=== PATIENT | female | born 1985 | race Caucasian/White ===

== ENCOUNTER 2017-10-14 17:44 | Emergency (ER) | payer OTHER ==
[2017-10-14 17:58] VITALS: BP 110/61; PULSE 91; TEMP 98; BMI 24.4
--- NOTE | 2017-10-14 17:58 | PDOC ---
Rapid Medical Evaluation Chief Complaint: Rash Time Seen by Provider: 10/14/17 17:54 Medical Evaluation: Allergies Allergy/AdvReac Type Severity Reaction Status Date / Time No Known Allergies Allergy Verified 10/22/15 15:53 10/14/17 17:55 I have performed a brief in-person evaluation of this patient. The patient presents with a chief complaint of: itchy rash Pertinent physical exam findings: scattered areas of itchy rash, on prednisone for 5 day already, getting worse I have ordered the following:urine The patient will proceed to the ED for further evaluation. Discharge Disposition - Diagnosis Rash - Referrals Referrals: STAFF,NOT ON [Primary Care Provider] - - Patient Instructions - Post Discharge Activity
--- NOTE | 2017-10-14 18:38 | PDOC ---
History of Present Illness - General Chief Complaint: Rash Stated Complaint: RASH Time Seen by Provider: 10/14/17 17:54 History Source: Patient Exam Limitations: No Limitations - History of Present Illness Initial Comments: 10/14/17 18:35 My chief complaint: Itchy rash 1 week History of present illness: She is a 32-year-old female with no significant medical problems except for eczema here today complaining of worsening rash to scalp bilateral, left lateral neck, medial elbow area, buttocks, hands, feet dorsal aspect and pubic area for one week. She denies any fever, cough, any difficulty breathing or swallowing. Patient reports that rash began on her hands , elbow area and has spread to buttocks pubic area and on top of her toes, left neck area and scalp. Patient was seen by a psychologist engineering on 10/09/2017 and was told that rash on her hands was hives and on her medial elbow area and buttocks was eczema. Patient was started on prednisone tapering dose 14 days. Patient was given a few different types of creams with steroids and them and Rx for hydroxyzine 10 mg for itchiness. Patient reports that rash is extremely itchy with a burning sensation. Patient denies any new medications or cleaning items. Patient had been on oral contraceptives stopped them 1 month ago and Z-Bhanu 2 weeks ago. Patient denies any new foods, soaps, or creams or clothing. Reports that she started to have her close washed at a laundry mat approximately one month ago. Patient currently is usingTacionex calciprotriene betamethasone cream to rash. Patient denies any difficulty swallowing or breathing presently. Patient went back to the psychologist engineering on 10/10/2017 and psychologist engineering did a biopsy of her skin on her hand. Patient does not think the rash has been resolving actually has been worse on her buttocks and pubic area, rash persists left neck, hands, scalp, buttock,elbows. Patient reports taking Benadryl without relief of itchiness. 10/14/17 19:02 10/14/17 19:08 10/14/17 19:09 Timing/Duration: getting worse Severity: moderate Associated Symptoms: reports: rash (pruritic ) Past History - Past Medical History Allergies/Adverse Reactions: Allergies Allergy/AdvReac Type Severity Reaction Status Date / Time No Known Allergies Allergy Verified 10/14/17 17:58 Home Medications: Ambulatory Orders Levothyroxine [Synthroid -] 75 mcg PO DAILY 10/20/15 Hydroxyzine HCl [Atarax -] 25 mg PO Q4H PRN #30 tablet 10/14/17 Loratadine [Claritin] 10 mg PO DAILY #5 tablet 10/14/17 Ranitidine [Zantac -] 150 mg PO BID #10 tablet 10/14/17 Asthma: No Cancer: No Cardiac Disorders: No COPD: No Diabetes: No HTN: No Seizures: No Thyroid Disease: Yes (HYPOTHYROIDISM- ON SYNTHROID) - Suicide/Smoking/Psychosocial Hx Smoking History: Never smoked Have you smoked in the past 12 months: No Hx Alcohol Use: No Drug/Substance Use Hx: No Hx Substance Use Treatment: No Review of Systems - Review of Systems Able to Perform ROS?: Yes Constitutional: No: Symptoms Reported HEENTM: No: Symptoms Reported Respiratory: No: Symptoms reported Cardiac (ROS): No: Symptoms Reported ABD/GI: No: Symptoms Reported : No: Symptoms Reported Musculoskeletal: No: Symptoms Reported Integumentary: Yes: Pruritus, Rash (left lateral neck, scalp, dorsal hands. fingers b/l, dorsal toes b/l, buttock medially b/l, pubic area, medial elbows b/ l ) *Physical Exam - Vital Signs Last Vital Signs Temp Pulse Resp BP Pulse Ox 98 F 91 H 18 110/61 99 10/14/17 17:53 10/14/17 17:53 10/14/17 17:53 10/14/17 17:53 10/14/17 17:53 - Physical Exam General Appearance: Yes: Appropriately Dressed HEENT: positive: TMs Normal. negative: Pharyngeal Erythema, Tonsillar Exudate, Tonsillar Erythema, Nasal Congestion, Rhinorrhea Neck: negative: Lymphadenopathy (R), Lymphadenopathy (L) Respiratory/Chest: positive: Lungs Clear, Normal Breath Sounds. negative: Chest Tender, Respiratory Distress Cardiovascular: positive: Regular Rhythm, Regular Rate, S1, S2 Integumentary: positive: Rash (left lateral neck non raised rash erythematous with slight scaliness, b/l medial elbow erythematous with slight scaliness, dorsal hands/ fingers minimally raised, dorsal toes b/l minimally raised, medial buttock & medial elbows area erythematous b/l with slight scaliness non raised, ) ED Treatment Course - ADDITIONAL ORDERS Additional order review: Laboratory Results 10/14/17 18:00 Urine HCG, Qual Negative Medical Decision Making - Medical Decision Making 10/14/17 19:07 She is a 32-year-old female with no significant medical problems except for eczema here today complaining of worsening rash to scalp bilateral medial elbow area, buttocks, hands, feet dorsal aspect and pubic area for one week. She denies any fever, cough, any difficulty breathing or swallowing. Patient reports that rash began on her hands, elbow area and has spread to buttocks pubic area and on top of her toes, left neck area and scalp. Patient was seen by a psychologist engineering on 10/09/2017 and was told that rash on her hands was hives and on her medial elbow area and buttocks was eczema. Patient was started on prednisone tapering dose 14 days. Patient was given a few different types of creams with steroids and them and Rx for hydroxyzine 10 mg for itchiness. Patient reports that rash is extremely itchy with a burning sensation. Patient denies any new medications. Patient had been on oral contraceptives stopped them 1 month ago and Z-Bhanu 2 weeks ago. Patient denies any new foods, soaps, or creams or clothing. Reports that she started to have her close washed at a laundry mat approximately one month ago. Patient currently is usingTacionex calciprotriene betamethasone cream to rash. Patient denies any difficulty swallowing or breathing presently. Patient went back to the psychologist engineering on and psychologist engineering did a biopsy of her skin on her hand. Patient does not think the rash has been resolving actually has been worse on her buttocks and pubic area., 10/14/17 19:14 pruritic rash PLAN: hydroxyzine 25 mg po now follow up with psychologist engineering continue with prednisone claritin 10 mg daily x 5 days zantac 150 mg bid for 5 days 10/14/17 19:15 10/14/17 19:52 *DC/Admit/Observation/Transfer Diagnosis at time of Disposition: Rash - Discharge Dispostion Disposition: HOME Condition at time of disposition: Stable - Prescriptions Prescriptions: Hydroxyzine HCl [Atarax -] 25 mg PO Q4H PRN #30 tablet PRN Reason: For Itching - Referrals Referrals: STAFF,NOT ON [Primary Care Provider] - Janessa Johnson MD [Staff Physician] - - Patient Instructions Additional Instructions: Continue to take prednisone as previously ordered until completion Return to emergency room if symptoms worsen any difficulty swallowing or breathing Follow-up with psychologist engineering as soon as possible Stop taking Benadryl and use Atarax as ordered today. Patient voiced understanding of discharge instructions and all questions were answered - Post Discharge Activity
[2017-10-14] MEDS ORDERED: hydrOXYzine HCL 25 MG TABLET (FP) PO ONE (18:58)
== END 2017-10-14 19:47 | disposition home or self-care (01) ==
LOC: JERFT 17:44
DX: R21 Rash and other nonspecific skin eruption (principal); E03.9 Hypothyroidism, unspecified; L30.9 Dermatitis, unspecified
CPT/HCPCS: 84703; 99281-25

== ENCOUNTER 2017-11-04 21:14 | Emergency (ER) | payer OTHER ==
[2017-11-04 21:26] VITALS: BP 126/57; PULSE 107; TEMP 97.9; BMI 24.4
--- NOTE | 2017-11-04 21:36 | PDOC ---
Rapid Medical Evaluation Chief Complaint: Abscess Boil Time Seen by Provider: 11/04/17 21:24 Medical Evaluation: Allergies Allergy/AdvReac Type Severity Reaction Status Date / Time No Known Allergies Allergy Verified 11/04/17 21:25 Vital Signs Temp Pulse Resp BP Pulse Ox 97.9 F 107 H 20 126/57 99 11/04/17 21:22 11/04/17 21:22 11/04/17 21:22 11/04/17 21:22 11/04/17 21:22 The patient presents with a chief complaint of: redness and pain to left buttocks I have performed a brief in-person evaluation of this patient; Pertinent physical exam findings redness to b/l buttocks. warm to touch I have ordered the following: none The patient will proceed to the ED for further evaluation. 11/04/17 21:28
[2017-11-04] MEDS ORDERED: CEPHALEXIN MONOHYDRATE 500 MG CAPSULE (UD) PO ONE (21:55)
[2017-11-04] MEDS ORDERED: SULFAMETHOXAZOLE/TRIMETHOPRIM 800MG/160MG D.S. TABLET PO ONE (21:55)
--- NOTE | 2017-11-04 21:55 | PDOC ---
History of Present Illness - General Chief Complaint: Abscess Boil Stated Complaint: RASH Time Seen by Provider: 11/04/17 21:24 History Source: Patient Exam Limitations: No Limitations - History of Present Illness Initial Comments: 11/04/17 21:57 32-year-old female with medical history of eczema presents to the emergency department complaining of redness/pain/warm and hardness to the center of her buttocks after vigorous scratching from itch 3 days ago. Patient denies fever, chills, nausea/vomiting, abdominal pains, difficulty voiding or bowel movements. Patient states she's been applying cold packs to her buttocks. Timing/Duration: other (2d) Associated Symptoms: denies: fever/chills Past History - Past Medical History Allergies/Adverse Reactions: Allergies Allergy/AdvReac Type Severity Reaction Status Date / Time No Known Allergies Allergy Verified 11/04/17 21:25 Home Medications: Ambulatory Orders Levothyroxine [Synthroid -] 75 mcg PO DAILY 10/20/15 Hydroxyzine HCl [Atarax -] 25 mg PO Q4H PRN #30 tablet 10/14/17 Asthma: No Cancer: No Cardiac Disorders: No COPD: No Diabetes: No HTN: No Seizures: No Thyroid Disease: Yes (HYPOTHYROIDISM- ON SYNTHROID) - Suicide/Smoking/Psychosocial Hx Smoking History: Never smoked Have you smoked in the past 12 months: No Hx Alcohol Use: No Drug/Substance Use Hx: No Hx Substance Use Treatment: No Review of Systems - Review of Systems Able to Perform ROS?: Yes Comments:: 11/04/17 21:56 CONSTITUTIONAL: Absent: fever, chills, diaphoresis, generalized weakness, malaise, loss of appetite HEENT: Absent: rhinorrhea, nasal congestion, throat pain, throat swelling, difficulty swallowing, mouth swelling, ear pain, eye pain, visual Changes CARDIOVASCULAR: Absent: chest pain, loss of consciousness, palpitations, irregular heart rate, peripheral edema RESPIRATORY: Absent: cough, shortness of breath, dyspnea with exertion, orthopnea, wheezing, stridor, hemoptysis SKIN: +erythema/pain to center b/l buttocks denies drainage Absent: rash, itching, pallor HEMATOLOGIC/IMMUNOLOGIC: Absent: easy bleeding, easy bruising, lymphadenopathy, frequent infections Is the patient limited Cypriot proficient: No *Physical Exam - Vital Signs Last Vital Signs Temp Pulse Resp BP Pulse Ox 97.9 F 107 H 20 126/57 99 11/04/17 21:22 11/04/17 21:22 11/04/17 21:22 11/04/17 21:22 11/04/17 21:22 - Physical Exam Comments: 11/04/17 21:56 GENERAL: Well developed, well nourished. Awake and alert. No acute distress. HEENT: Normocephalic, atraumatic. PERRLA, EOMI. No conjunctival pallor. Sclera are non- icteric. Moist mucous membranes. Oropharynx is clear. NECK: Supple. Full ROM. No JVD. Carotid pulses 2+ and symmetric, without bruits. No thyromegaly. No lymphadenopathy. CARDIOVASCULAR: Regular rate and rhythm. No murmurs, rubs, or gallops. Distal pulses are 2+ and symmetric. PULMONARY: No evidence of respiratory distress. Lungs clear to auscultation bilaterally. No wheezing, rales or rhonchi. ABDOMINAL: Soft. Non-tender. Non-distended. No rebound or guarding. No organomegaly. Normoactive bowel sounds. MUSCULOSKELETAL Normal range of motion at all joints. No bony deformities or tenderness. No CVA tenderness. EXTREMITIES: No cyanosis. No clubbing. No edema. No calf tenderness. SKIN: Warm and dry. Normal capillary refill. No rashes. No jaundice. B/L central buttocks, neg lymphangitis, +warm to touch erythema ~2cm circular erythema, +indurated *DC/Admit/Observation/Transfer Diagnosis at time of Disposition: Cellulitis and abscess of buttock - Discharge Dispostion Disposition: HOME Condition at time of disposition: Stable Admit: No - Referrals Referrals: STAFF,NOT ON [Primary Care Provider] - - Patient Instructions Printed Discharge Instructions: DI for Cellulitis -- Adult Additional Instructions: Warm compresses Tylenol or motrin as needed for pain every 6 hours Take your antibiotics as directed/Keflex and bactrim ds Follow up with your physician in 2 days for a wound check Warm compress to affected area Return to the ER for severe/persistent/worsening symptoms - Post Discharge Activity
[2017-11-04] MEDS ORDERED: SULFAMETHOXAZOLE/TRIMETHOPRIM 800MG/160MG D.S. TABLET ONE (21:57)
[2017-11-04] MEDS ORDERED: CEPHALEXIN MONOHYDRATE 500 MG CAPSULE (UD) ONE (21:58)
== END 2017-11-04 21:56 | disposition home or self-care (01) ==
LOC: JERFT 21:14
DX: L03.317 Cellulitis of buttock (principal); L02.31 Cutaneous abscess of buttock
CPT/HCPCS: 99281-25

== ENCOUNTER 2021-02-03 01:22 | Emergency (ER) | payer OTHER ==
[2021-02-03 01:55] VITALS: BP 104/70; PULSE 83; TEMP 98.3; BMI 29.2
== END 2021-02-03 03:41 | disposition left against medical advice (07) ==
LOC: JER 01:22
DX: R07.9 Chest pain, unspecified (principal)
CPT/HCPCS: 93005; 93010; 99284-25

== ENCOUNTER 2021-03-09 20:42 | Emergency (ER) | payer OTHER ==
[2021-03-09 20:53] VITALS: BMI 30.1
[2021-03-09] MEDS ORDERED: LACTATED RINGERS SOLUTION 1000 ML INFUS.BAG IV ONE (22:01)
[2021-03-09] MEDS ORDERED: METOCLOPRAMIDE HCL INJECTION 10 MG/2 ML VIAL IVPUSH ONE (22:03)
[2021-03-09] MEDS ORDERED: METOCLOPRAMIDE HCL INJECTION 10 MG/2 ML VIAL ONE (22:10)
[2021-03-09 22:20] LABS: BASO % 0.5 % (0-2.0); EOS % 0.4 % (0-4.5); HEMATOCRIT 41.9 % (32.4-45.2); HEMOGLOBIN 14.4 GM/dL (10.7-15.3); LYMPH % 23.5 % (8-40); MCH 29.2 pg (25.7-33.7); MCHC 34.4 g/dl (32.0-36.0); MEAN PLT VOLUME 8.6 fl (7.5-11.1); MONO % 5.8 % (3.8-10.2); NEUT % 69.8 % (42.8-82.8); PLATELET COUNT 284 K/MM3 (134-434); RBC 4.94 M/mm3 (3.60-5.2); RDW 13.9 % (11.6-15.6)
[2021-03-09 22:30] LABS: EPI CELLS >36 /uL (0-25.1); HYALINE CASTS 1 /uL (0-3.1); PH,URINE 7.5 (5.0-8.0); URINE APPEARANCE TURBID; URINE BACTERIA 1626 /uL (0-1359); URINE BILIRUBIN NEGATIVE (NEGATIVE); URINE COLOR YELLOW; URINE GLUCOSE (UA) NEGATIVE (NEGATIVE); URINE KETONE 1+ (NEGATIVE); URINE LEUK ESTERASE 3+ (NEGATIVE); URINE NITRITE NEGATIVE (NEGATIVE); URINE PROTEIN NEGATIVE (NEGATIVE); URINE RBC 9 /uL (0-23.9); URINE UROBILINOGEN 0.2 mg/dL (0.2-1.0); URINE WBC 76 /uL (0-25.8)
[2021-03-09 22:54] LABS: ALBUMIN 3.9 g/dl (3.4-5.0); BLOOD UREA NITROGEN 8.8 mg/dL (7-18); CALCIUM 9.7 mg/dL (8.5-10.1)
[2021-03-09 22:55] LABS: MAGNESIUM 2.5 mg/dL (1.8-2.4)
[2021-03-09 22:58] LABS: CREATININE 0.7 mg/dL (0.55-1.3); PHOSPHOROUS 4.1 mg/dL (2.5-4.9)
[2021-03-09 22:59] LABS: BILIRUBIN,TOTAL 0.4 mg/dL (0.2-1); TOT PROT 7.6 g/dl (6.4-8.2)
[2021-03-10 00:04] VITALS: BP 114/61; PULSE 78; TEMP 97.6
[2021-03-10] MEDS ORDERED: PROMETHAZINE HCL 50 MG/1 ML AMP IM ONE (01:10)
[2021-03-10] MEDS ORDERED: LACTATED RINGERS SOLUTION 1000 ML INFUS.BAG IV ONE (01:14)
[2021-03-10] MEDS ORDERED: PROMETHAZINE HCL 25 MG/1 ML VIAL IM ONE (01:30)
[2021-03-10 01:48] LABS: EPI CELLS 19 /uL (0-25.1); HYALINE CASTS 1 /uL (0-3.1); PH,URINE 7.5 (5.0-8.0); URINE APPEARANCE CLEAR; URINE BACTERIA 459 /uL (0-1359); URINE BILIRUBIN NEGATIVE (NEGATIVE); URINE COLOR YELLOW; URINE GLUCOSE (UA) NEGATIVE (NEGATIVE); URINE KETONE 1+ (NEGATIVE); URINE LEUK ESTERASE 2+ (NEGATIVE); URINE NITRITE NEGATIVE (NEGATIVE); URINE PROTEIN NEGATIVE (NEGATIVE); URINE RBC 6 /uL (0-23.9); URINE UROBILINOGEN 0.2 mg/dL (0.2-1.0); URINE WBC 22 /uL (0-25.8)
[2021-03-10] MEDS ORDERED: PYRIDOXINE HCL (B-6) 50 MG TABLET (FP) PO ONE (01:51)
[2021-03-10] MEDS ORDERED: PROMETHAZINE HCL 25 MG TABLET PO ONE (01:52)
== END 2021-03-10 05:00 | disposition home or self-care (01) ==
LOC: JER 20:42
PROC: 3E033NZ Introduction of Analgesics, Hypnotics, Sedatives into Peripheral Vein, Percutaneous Approach (ICD-10-PCS; principal; 2021-03-09)
DX: O21.1 Hyperemesis gravidarum with metabolic disturbance (principal)
CPT/HCPCS: 36415; 80053; 81003; 83735; 84100; 84702; 84703; 85025; 87086; 99284-25

== ENCOUNTER 2021-03-28 20:42 | Emergency (ER) | payer OTHER ==
[2021-03-28] MEDS ORDERED: LACTATED RINGERS SOLUTION 1000 ML INFUS.BAG IV STA (20:50)
[2021-03-28 20:56] VITALS: BP 122/61; PULSE 98; TEMP 98.4; BMI 30.1
[2021-03-28 21:35] LABS: BASO % 0.6 % (0-2.0); HEMATOCRIT 41.9 % (32.4-45.2); HEMOGLOBIN 14.1 GM/dL (10.7-15.3); LYMPH % 21.5 % (8-40); MCH 28.7 pg (25.7-33.7); MCHC 33.6 g/dl (32.0-36.0); MEAN CELL VOLUME 85.4 fl (80-96); MEAN PLT VOLUME 9.3 fl (7.5-11.1); MONO % 7.4 % (3.8-10.2); NEUT % 69.5 % (42.8-82.8); PLATELET COUNT 272 K/MM3 (134-434); RDW 13.8 % (11.6-15.6); WHITE BLOOD COUNT 9.4 K/mm3 (4.0-10.0)
[2021-03-28] MEDS ORDERED: ONDANSETRON 4 MG/2 ML VIAL IVPUSH ONE (21:42)
[2021-03-28] MEDS ORDERED: ONDANSETRON 4 MG/2 ML VIAL ONE (21:48)
[2021-03-28 21:49] LABS: ALBUMIN 3.6 g/dl (3.4-5.0); BLOOD UREA NITROGEN 8.1 mg/dL (7-18); CALCIUM 8.9 mg/dL (8.5-10.1)
[2021-03-28 21:53] LABS: CREATININE 0.6 mg/dL (0.55-1.3)
[2021-03-28 21:54] LABS: BILIRUBIN,TOTAL 0.3 mg/dL (0.2-1); TOT PROT 7.1 g/dl (6.4-8.2)
[2021-03-28 21:55] LABS: EPI CELLS >36 /uL (0-25.1); HYALINE CASTS 5 /uL (0-3.1); URINE APPEARANCE CLOUDY; URINE BACTERIA 829 /uL (0-1359); URINE BILIRUBIN NEGATIVE (NEGATIVE); URINE COLOR YELLOW; URINE GLUCOSE (UA) NEGATIVE (NEGATIVE); URINE KETONE 2+ (NEGATIVE); URINE LEUK ESTERASE 1+ (NEGATIVE); URINE NITRITE NEGATIVE (NEGATIVE); URINE PROTEIN NEGATIVE (NEGATIVE); URINE RBC 4 /uL (0-23.9); URINE WBC 67 /uL (0-25.8)
[2021-03-28] MEDS ORDERED: CEPHALEXIN MONOHYDRATE 500 MG CAPSULE (UD) PO ONE (22:24)
[2021-03-28] MEDS ORDERED: CEPHALEXIN MONOHYDRATE 500 MG CAPSULE (UD) ONE (22:32)
== END 2021-03-29 00:11 | disposition home or self-care (01) ==
LOC: JER 20:42
PROC: 3E033GC Introduction of Other Therapeutic Substance into Peripheral Vein, Percutaneous Approach (ICD-10-PCS; principal; 2021-03-28)
DX: O21.1 Hyperemesis gravidarum with metabolic disturbance (principal); Z3A.10 10 weeks gestation of pregnancy
CPT/HCPCS: 36415; 80053; 81003; 85025; 87086; 99284-25

== ENCOUNTER 2021-07-25 19:19 | Emergency (ER) | payer OTHER ==
[2021-07-25 19:51] VITALS: BMI 30.1
[2021-07-25] MEDS ORDERED: LACTATED RINGERS SOLUTION 1000 ML INFUS.BAG IV ONE (20:05)
[2021-07-25 20:45] LABS: BASO % 0.7 % (0-2.0); EOS % 0.9 % (0-4.5); HEMATOCRIT 36.7 % (32.4-45.2); HEMOGLOBIN 12.5 GM/dL (10.7-15.3); LYMPH % 14.7 % (8-40); MCH 28.8 pg (25.7-33.7); MCHC 33.9 g/dl (32.0-36.0); MEAN PLT VOLUME 8.2 fl (7.5-11.1); MONO % 5.2 % (3.8-10.2); NEUT % 78.5 % (42.8-82.8); PLATELET COUNT 299 10^3/uL (134-434); RBC 4.32 M/mm3 (3.60-5.2); RDW 13.8 % (11.6-15.6); WHITE BLOOD COUNT 12.2 K/mm3 (4.0-10.0)
[2021-07-25 20:48] LABS: EPI CELLS 17 /uL (0-25.1); HYALINE CASTS 0 /uL (0-3.1); PH,URINE 7.5 (5.0-8.0); URINE APPEARANCE CLOUDY; URINE BACTERIA 170 /uL (0-1359); URINE BILIRUBIN NEGATIVE (NEGATIVE); URINE COLOR YELLOW; URINE GLUCOSE (UA) NEGATIVE (NEGATIVE); URINE KETONE NEGATIVE (NEGATIVE); URINE LEUK ESTERASE 1+ (NEGATIVE); URINE NITRITE NEGATIVE (NEGATIVE); URINE PROTEIN NEGATIVE (NEGATIVE); URINE RBC 0 /uL (0-23.9); URINE UROBILINOGEN 0.2 mg/dL (0.2-1.0); URINE WBC 10 /uL (0-25.8)
[2021-07-25] MEDS ORDERED: CEPHALEXIN MONOHYDRATE 500 MG CAPSULE (UD) PO ONE (20:51)
[2021-07-25 20:59] LABS: CHLORIDE 106 mmol/L (98-107); SODIUM 138 mmol/L (136-145)
[2021-07-25 21:01] LABS: BLOOD UREA NITROGEN 7.3 mg/dL (7-18); CALCIUM 8.8 mg/dL (8.5-10.1)
[2021-07-25 21:02] LABS: ANION GAP 8 MMOL/L (8-16); CO2 24 mmol/L (21-32); GLUCOSE,RANDOM 84 mg/dL (74-106); MAGNESIUM 2.2 mg/dL (1.8-2.4)
[2021-07-25 21:05] LABS: CREATININE 0.5 mg/dL (0.55-1.3); SGOT/AST 17 U/L (15-37); SGPT/ALT 11 U/L (13-61)
[2021-07-25 21:06] LABS: BILIRUBIN,TOTAL 0.2 mg/dL (0.2-1); TOT PROT 7.1 g/dl (6.4-8.2)
[2021-07-25] MEDS ORDERED: CEPHALEXIN MONOHYDRATE 500 MG CAPSULE (UD) ONE (21:06)
[2021-07-25 21:08] LABS: ALK PHOS 93 U/L (45-117)
[2021-07-25 21:54] LABS: HIV INTERPRETATION NEGATIVE (NEGATIVE)
[2021-07-25 22:21] VITALS: BP 108/66; PULSE 81; TEMP 98.2
== END 2021-07-25 22:41 | disposition home or self-care (01) ==
LOC: JER 19:19
DX: O26.892 Other specified pregnancy related conditions, second trimester (principal); O23.42 Unspecified infection of urinary tract in pregnancy, second trimester; R42 Dizziness and giddiness; Z3A.26 26 weeks gestation of pregnancy
CPT/HCPCS: 36415; 80053; 81003; 82550; 83735; 84439; 84443; 84481; 84484; 85025; 87086; 87389; 93005; 93010; 99284-25

== ENCOUNTER 2021-10-27 20:30 | Inpatient (IN) | payer OTHER ==
[2021-10-27] MEDS: ELECTROLYTE-148 SOLN 1,000 ML IV SCH (21:00)
[2021-10-27 21:52] LABS: INR 0.96 (0.83-1.09); PROTHROMBIN TIME (PATIENT) 10.8 SEC (9.7-13.0)
[2021-10-27 21:53] LABS: BASO % 0.3 % (0-2.0); HEMATOCRIT 38.8 % (32.4-45.2); LYMPH % 25.7 % (8-40); MCH 28.3 pg (25.7-33.7); MCHC 33.6 g/dl (32.0-36.0); MEAN CELL VOLUME 84.4 fl (80-96); MEAN PLT VOLUME 9.1 fl (7.5-11.1); MONO % 8.4 % (3.8-10.2); NEUT % 64.6 % (42.8-82.8); PLATELET COUNT 279 10^3/uL (134-434); RDW 15.8 % (11.6-15.6); WHITE BLOOD COUNT 10.6 K/mm3 (4.0-10.0)
[2021-10-27 21:54] LABS: ACTIVATED PTT 28.2 SECONDS (25.2-36.5)
[2021-10-27 22:08] LABS: BLOOD UREA NITROGEN 13.3 mg/dL (7-18); CALCIUM 9.5 mg/dL (8.5-10.1)
[2021-10-27 22:12] LABS: CREATININE 0.6 mg/dL (0.55-1.3)
[2021-10-27] MEDS ORDERED: OXYTOCIN 30 UNITS in 0.9% NS 30 UNIT/500 ML INFUS.BAG IVPB SCH (22:30)
[2021-10-27 23:05] VITALS: BMI 32.8
[2021-10-27] MEDS ORDERED: OXYTOCIN 30 UNITS in 0.9% NS 30 UNIT/500 ML INFUS.BAG IVPB ONE (23:20)
[2021-10-28] MEDS ORDERED: FENTANYL/BUPIVACAINE/NS/PF - PCEA - 50 ML DISP.SYRIN EP ONE ×2 (01:26→04:57)
[2021-10-28] MEDS ORDERED: PCA PUMP NR ONE ×2 (01:26→07:34)
[2021-10-28] MEDS ORDERED: BUPIVACAINE HCL/PF 0.25% (2.5MG/ML) 10 ML VIAL ONE (01:32)
[2021-10-28] MEDS ORDERED: NALOXONE HCL 0.4 MG/ML VIAL IVPUSH PRN (02:02)
[2021-10-28] MEDS ORDERED: FENTANYL/BUPIVACAINE/NS/PF - PCEA - 50 ML DISP.SYRIN EP SCH ×2 (02:15→08:40)
[2021-10-28] MEDS: ELECTROLYTE-148 SOLN 1,000 ML IV SCH (04:00)
[2021-10-28] MEDS ORDERED: OXYTOCIN 20 UNITS in 0.9% NS 20 UNIT/1,000 ML INFUS.BAG IV ONE (07:28)
[2021-10-28] MEDS ORDERED: METHYLERGONOVINE MALEATE 0.2 MG/1 ML AMP IM PRN (08:24)
[2021-10-28] MEDS ORDERED: BENZOCAINE 20% 57 GM BOTTLE TP PRN (08:24)
[2021-10-28] MEDS ORDERED: WITCH HAZEL 50% (TUCKS) 40 PAD/JAR PAD TP PRN (08:24)
[2021-10-28] MEDS ORDERED: BISACODYL 10 MG SUPP.RECT RC PRN (08:24)
[2021-10-28] MEDS ORDERED: BENZOCAINE 28 GM HEMORRHOIDAL OINTMENT TP PRN (08:24)
[2021-10-28] MEDS ORDERED: oxyCODONE HCL 5 MG TABLET PO PRN (08:24)
[2021-10-28] MEDS ORDERED: OXYTOCIN 20 UNITS in 0.9% NS 20 UNIT/1,000 ML INFUS.BAG IV SCH (08:30)
[2021-10-28] MEDS ORDERED: oxyCODONE HCL 5 MG TABLET ONE (11:37)
[2021-10-28] MEDS: ACETAMINOPHEN 325 MG TABLET (FP) PO PRN ×2 (11:40→14:58)
[2021-10-28] MEDS ORDERED: ACETAMINOPHEN 325 MG TABLET (FP) ONE ×2 (11:41→14:56)
[2021-10-28] MEDS: SENNOSIDES/DOCUSATE COMBO (SENNA PLUS) TABLET (UD) PO PRN (19:37)
[2021-10-28] MEDS: IBUPROFEN 600 MG TABLET (FP) PO PRN (19:37)
[2021-10-29 07:44] LABS: BASO % 0.5 % (0-2.0); EOS % 1.6 % (0-4.5); HEMATOCRIT 35.6 % (32.4-45.2); HEMOGLOBIN 11.9 GM/dL (10.7-15.3); LYMPH % 25.3 % (8-40); MCH 28.7 pg (25.7-33.7); MCHC 33.5 g/dl (32.0-36.0); MEAN CELL VOLUME 85.8 fl (80-96); MEAN PLT VOLUME 8.9 fl (7.5-11.1); MONO % 7.3 % (3.8-10.2); NEUT % 65.3 % (42.8-82.8); PLATELET COUNT 252 10^3/uL (134-434); RBC 4.16 M/mm3 (3.60-5.2); RDW 16.3 % (11.6-15.6); WHITE BLOOD COUNT 11.1 K/mm3 (4.0-10.0)
[2021-10-29] MEDS: IBUPROFEN 600 MG TABLET (FP) PO PRN ×3 (07:52→20:57)
[2021-10-29 20:40] VITALS: TEMP 97.2
[2021-10-29] MEDS: SENNOSIDES/DOCUSATE COMBO (SENNA PLUS) TABLET (UD) PO PRN (20:57)
[2021-10-30] MEDS: IBUPROFEN 600 MG TABLET (FP) PO PRN (07:42)
[2021-10-30 10:51] VITALS: BP 114/78; PULSE 81
== END 2021-10-30 14:15 | disposition home or self-care (01) | DRG 560 ==
LOC: JLDR 20:30 → J3W 10-28 16:01
PROVIDERS: ADMIT Specialist; ATTEND Specialist
PROC: 10E0XZZ Delivery of Products of Conception, External Approach (ICD-10-PCS; principal; 2021-10-28)
DX: O99.284 Endocrine, nutritional and metabolic diseases complicating childbirth (principal); E03.9 Hypothyroidism, unspecified; Z3A.40 40 weeks gestation of pregnancy; Z37.0 Single live birth
CPT/HCPCS: 36415; 59409; 80048; 85025; 85610; 85730; 86780; 86850; 86900; 86901; 93971-TC; C9803; U0003; U0005

== ENCOUNTER 2024-04-10 21:05 | Inpatient (IN) | payer OTHER ==
[2024-04-10] MEDS ORDERED: ELECTROLYTE-148 SOLN 1,000 ML IV SCH (23:00)
[2024-04-10] MEDS: ELECTROLYTE-148 SOLN 1,000 ML IV SCH (23:00)
[2024-04-10 23:38] LABS: BASO % 0.4 % (0-2.0); EOS % 1.9 % (0-4.5); LYMPH % 25.8 % (8-40); MCH 26.9 pg (25.7-33.7); MCHC 34.1 g/dl (32.0-36.0); MEAN CELL VOLUME 78.7 fl (80-96); MEAN PLT VOLUME 9.1 fl (7.5-11.1); MONO % 9.5 % (3.8-10.2); NEUT % 62.4 % (42.8-82.8); PLATELET COUNT 238 10^3/uL (134-434); RBC 4.83 M/mm3 (3.60-5.2); RDW 16.7 % (11.6-15.6); WHITE BLOOD COUNT 8.9 K/mm3 (4.0-10.0)
[2024-04-11 00:01] VITALS: BMI 35.0
[2024-04-11 00:05] LABS: POTASSIUM 4.4 mmol/L (3.5-5.1)
[2024-04-11 00:08] LABS: BLOOD UREA NITROGEN 14.7 mg/dL (7-18); CALCIUM 8.9 mg/dL (8.5-10.1)
[2024-04-11 00:12] LABS: INR 0.95 (0.83-1.09); PROTHROMBIN TIME (PATIENT) 10.7 SEC (9.7-13.0)
[2024-04-11 00:12] LABS: CREATININE 0.6 mg/dL (0.55-1.3)
[2024-04-11 00:15] LABS: ACTIVATED PTT 28.8 SECONDS (25.2-36.5)
[2024-04-11] MEDS ORDERED: FENTANYL/BUPIVACAINE/NS/PF - PCEA - 50 ML DISP.SYRIN EP ONE (00:33)
[2024-04-11] MEDS ORDERED: NALOXONE HCL 0.4 MG/ML VIAL IVPUSH PRN (01:37)
[2024-04-11] MEDS ORDERED: OXYTOCIN 20 UNITS in 0.9% NS 20 UNIT/1,000 ML INFUS.BAG IV ONE (03:00)
[2024-04-11] MEDS: OXYTOCIN 30 UNITS in 0.9% NS 30 UNIT/500 ML INFUS.BAG IVPB SCH (03:00)
[2024-04-11] MEDS ORDERED: OXYTOCIN 30 UNITS in 0.9% NS 30 UNIT/500 ML INFUS.BAG IVPB ONE (03:09)
[2024-04-11] MEDS: OXYTOCIN 20 UNITS in 0.9% NS 20 UNIT/1,000 ML INFUS.BAG IV SCH (03:45)
[2024-04-11] MEDS ORDERED: METHYLERGONOVINE MALEATE 0.2 MG/1 ML AMP IM PRN (03:57)
[2024-04-11] MEDS ORDERED: BENZOCAINE 20% 57 GM BOTTLE TP PRN (03:57)
[2024-04-11] MEDS ORDERED: WITCH HAZEL 50% (TUCKS) 40 PAD/JAR PAD TP PRN (03:57)
[2024-04-11] MEDS: ACETAMINOPHEN 325 MG TABLET (FP) PO PRN (06:15)
[2024-04-11] MEDS ORDERED: ACETAMINOPHEN 325 MG TABLET (FP) ONE (06:17)
[2024-04-11] MEDS: FENTANYL/BUPIVACAINE/NS/PF - PCEA - 50 ML DISP.SYRIN EP SCH (07:42)
[2024-04-11] MEDS: IBUPROFEN 600 MG TABLET (FP) PO PRN (08:45)
[2024-04-11] MEDS: PRENATAL VITAMINS W/ FOLIC ACID TABLET (FP) PO SCH (09:43)
[2024-04-12] MEDS: BISACODYL 10 MG SUPP.RECT RC PRN (01:06)
[2024-04-12 09:20] LABS: BASO % 0.4 % (0-2.0); EOS % 2.5 % (0-4.5); HEMOGLOBIN 11.6 GM/dL (10.7-15.3); LYMPH % 25.7 % (8-40); MCH 27.1 pg (25.7-33.7); MCHC 34.2 g/dl (32.0-36.0); MEAN CELL VOLUME 79.3 fl (80-96); MEAN PLT VOLUME 8.7 fl (7.5-11.1); MONO % 7.5 % (3.8-10.2); NEUT % 63.9 % (42.8-82.8); PLATELET COUNT 203 10^3/uL (134-434); RBC 4.28 M/mm3 (3.60-5.2); RDW 16.8 % (11.6-15.6); WHITE BLOOD COUNT 9.1 K/mm3 (4.0-10.0)
[2024-04-12 10:07] VITALS: PULSE 80; RESP 18
[2024-04-12] MEDS: BENZOCAINE 28 GM HEMORRHOIDAL OINTMENT TP PRN (16:58)
[2024-04-12] MEDS: SENNOSIDES/DOCUSATE COMBO (SENNA PLUS) TABLET (UD) PO PRN (21:01)
[2024-04-12 22:14] VITALS: TEMP 98.2
[2024-04-13 10:33] VITALS: BP 112/62
== END 2024-04-13 14:30 | disposition home or self-care (01) | DRG 560 ==
LOC: JDEL 21:05 → JLDR 22:00 → J3W 04-11 08:05
PROVIDERS: ADMIT Obstetrics & Gynecology; ATTEND Obstetrics & Gynecology
PROC: 10E0XZZ Delivery of Products of Conception, External Approach (ICD-10-PCS; principal; 2024-04-11)
DX: O99.284 Endocrine, nutritional and metabolic diseases complicating childbirth (principal); O99.213 Obesity complicating pregnancy, third trimester; Z3A.39 39 weeks gestation of pregnancy; Z37.0 Single live birth
CPT/HCPCS: 36415; 80048; 85025; 85610; 85730; 86762; 86780; 86850; 86900; 86901; 88307-TC